=== PATIENT | female | born 1995 | race Asian ===

== ENCOUNTER 2017-05-06 01:54 | Emergency (ER) | payer OTHER ==
[~2017-05-06] VITALS: Ht 160 cm; Wt 54.2 kg
[2017-05-06 02:08] VITALS: TEMP 36.7; Ht 160 cm; Wt 54.2 kg
[2017-05-06] MEDS ORDERED: SODIUM CHLORIDE 0.9% 1000ML 1,000 ML IV STA (02:20)
[2017-05-06 02:58] LABS: BASO % 0.4 %; BASO ABS # 0.03 K/uL (0-0.2); COMPLETE YES; EOS % 2.2 %; IG% 0.1 %; LYMPH % 37.4 %; MEAN CELL VOLUME 90.3 fL (80-100); MEAN CORPUSCULAR HEMOGLOBIN 29.5 pg (25-34); MEAN CORPUSCULAR HGB CONC 32.6 g/dl (32-36); MEAN PLATELET VOLUME 10.6 fL (7.4-10.4); MONO % 7.9 %; PLATELET COUNT 227 K/uL (130-400); RED BLOOD COUNT 4.65 M/uL (4.2-5.4); WHITE BLOOD COUNT 6.95 K/uL (4.8-10.8)
[2017-05-06 02:59] LABS: MANUAL MICROSCOPIC REQUIRED? NO; REVIEW REQ? NO; URINE APPEARANCE CLEAR (CLEAR); URINE BILIRUBIN NEG (NEG); URINE COLOR YELLOW; URINE NITRITE NEG (NEG); URINE PH 5.5 (4.5-7.5); URINE SPECIFIC GRAVITY 1.015 (1.000-1.030); UROBILINOGEN NEG (NEG); ZZUR CULT IF INDIC CLEAN CATCH NO
[2017-05-06 03:17] LABS: ALT/SGPT 19 U/L (12-78); AST/SGOT 11 U/L (15-37); BLOOD UREA NITROGEN 14 mg/dl (7-18); BUN/CREATININE RATIO 22.2 (10-20); CARBON DIOXIDE 29 mmol/L (21-32); CHLORIDE 104 mmol/L (98-107); CREATININE 0.65 mg/dl (0.60-1.20); GLUCOSE 90 mg/dl (70-99); POTASSIUM 3.8 mmol/L (3.5-5.1); SODIUM 137 mmol/L (136-145)
[2017-05-06 03:18] LABS: PREG INTERNAL NEGATIVE QC NEG CLEAR BACKGROUND; PREG INTERNAL POSITIVE QC POS CONTROL LINE
[2017-05-06 03:20] LABS: ALKALINE PHOSPHATASE 89 U/L (45-117)
--- NOTE | 2017-05-06 05:42 | EMERGENCY ROOM VISIT NOTE ---
History First contact with patient: 02:11 Chief Complaint: PELVIC PAIN Stated Complaint: VAGINAL AREA PAIN History of Present Illness The patient is a 21 year old female who presents to the Emergency Room with complaints of leg pain after intercourse tonight with her partner. Patient states she's had intercourse before and has not had pain. Pain currently 4-10. Comes and goes in severity. It does not radiate. Described as aching. Patient denies chest pain, dyspnea, fever, chills, nausea, vomiting, diarrhea, abdominal pain, back pain, urinary symptoms, vaginal itching or discharge. She does not feel at risk for STIs. Review of Systems See HPI for pertinent positives & negatives. A total of 10 systems reviewed and were otherwise negative. Past Medical/Surgical History None Social History Smoking Status: Current Every Day Smoker Drug Use: none Marital Status: in relationship Occupation Status: [employer] student Current/Historical Medications No Active Prescriptions or Reported Meds Physical Exam Vital Signs Date Time Temp Pulse Resp B/P (MAP) Pulse Ox O2 Delivery O2 Flow Rate FiO2 05/06/17 03:56 66 16 96/60 98 Room Air 05/06/17 02:08 36.7 82 18 109/75 94 Room Air Physical Exam VITALS: Vitals are noted on the nurse's note and reviewed by myself. Vital signs stable. GENERAL: Pleasant female, in no acute distress, nondiaphoretic, well-developed well-nourished. SKIN: Capillary reflex less than 2 seconds. HEENT: Normocephalic. PERRLA. EOMI. Nares patent. Mucous membranes moist. Neck is supple without nuchal rigidity. HEART: Regular rate and rhythm without murmurs gallops or rubs. LUNGS: Clear to auscultation bilaterally without wheezes, rales or rhonchi. No retractions or accessory muscle use. ABDOMEN: Positive bowel sounds x 4. Normal tympanic percussion. Soft, nontender, without masses or organomegaly. Joseph sign negative. No guarding or rebound tenderness. No CVA tenderness exam: Normal external female genitalia, minimal white discharge in the vault , no CMT tenderness, minimal right adnexal tenderness, cultures taken and sent. Site Planner present MUSCULOSKELETAL: No gross musculoskeletal defects. NEURO: Patient was alert and oriented to person place and time. Normal sensation to light and sharp touch. No focal neurological deficits. Medical Decision & Procedures Laboratory Results 05/06/17 02:35 Red Blood Count 4.65, Mean Corpuscular Volume 90.3, Mean Corpuscular Hemoglobin 29.5, Mean Corpuscular Hemoglobin Concent 32.6, Mean Platelet Volume 10.6, Neutrophils (%) (Auto) 52.0, Lymphocytes (%) (Auto) 37.4, Monocytes (%) (Auto) 7.9, Eosinophils (%) (Auto) 2.2, Basophils (%) (Auto) 0.4, Neutrophils # (Auto) 3.61, Lymphocytes # (Auto) 2.60, Monocytes # (Auto) 0.55, Eosinophils # (Auto) 0.15, Basophils # (Auto) 0.03 05/06/17 02:35 Test 05/06/17 02:35 05/06/17 02:55 White Blood Count 6.95 K/uL (4.8-10.8) Red Blood Count 4.65 M/uL (4.2-5.4) Hemoglobin 13.7 g/dL (12.0-16.0) Hematocrit 42.0 % (37-47) Mean Corpuscular Volume 90.3 fL (80-100) Mean Corpuscular Hemoglobin 29.5 pg (25-34) Mean Corpuscular Hemoglobin Concent 32.6 g/dl (32-36) Platelet Count 227 K/uL (130-400) Mean Platelet Volume 10.6 fL (7.4-10.4) Neutrophils (%) (Auto) 52.0 % Lymphocytes (%) (Auto) 37.4 % Monocytes (%) (Auto) 7.9 % Eosinophils (%) (Auto) 2.2 % Basophils (%) (Auto) 0.4 % Neutrophils # (Auto) 3.61 K/uL (1.4-6.5) Lymphocytes # (Auto) 2.60 K/uL (1.2-3.4) Monocytes # (Auto) 0.55 K/uL (0.11-0.59) Eosinophils # (Auto) 0.15 K/uL (0-0.5) Basophils # (Auto) 0.03 K/uL (0-0.2) RDW Standard Deviation 41.7 fL (36.4-46.3) RDW Coefficient of Variation 12.7 % (11.5-14.5) Immature Granulocyte % (Auto) 0.1 % Immature Granulocyte # (Auto) 0.01 K/uL (0.00-0.02) Urine Color YELLOW Urine Appearance CLEAR (CLEAR) Urine pH 5.5 (4.5-7.5) Urine Specific Cammal 1.015 (1.000-1.030) Urine Protein NEG (NEG) Urine Glucose (UA) NEG (NEG) Urine Ketones NEG (NEG) Urine Occult Blood NEG (NEG) Urine Nitrite NEG (NEG) Urine Bilirubin NEG (NEG) Urine Urobilinogen NEG (NEG) Urine Leukocyte Esterase NEG (NEG) Anion Gap 4.0 mmol/L (3-11) Est Creatinine Clear Calc Drug Dose 115.1 ml/min Estimated GFR () 149.2 Estimated GFR (Non- 128.7 BUN/Creatinine Ratio 22.2 (10-20) Calcium Level 9.0 mg/dl (8.5-10.1) Total Bilirubin 0.3 mg/dl (0.2-1) Direct Bilirubin < 0.1 mg/dl (0-0.2) Aspartate Amino Transf (AST/SGOT) 11 U/L (15-37) Alanine Aminotransferase (ALT/SGPT) 19 U/L (12-78) Alkaline Phosphatase 89 U/L (45-117) Total Protein 7.8 gm/dl (6.4-8.2) Albumin 4.1 gm/dl (3.4-5.0) Human Chorionic Gonadotropin, Qual NEG (NEG) Date/Time Source Procedure Growth Status 05/06/17 02:55 Cervix Swab Trichomonas Preparation - Final Complete Medications Administered Medications (Trade) Dose Ordered Sig/Junior Route Start Time Stop Time Status Last Admin Dose Admin Sodium Chloride 1,000 ml @ 999 mls/hr Q1H1M STAT IV 05/06/17 02:20 05/06/17 03:20 DC 05/06/17 02:41 999 MLS/HR ED Course Prior records/ancillary studies reviewed. Triage Nursing notes reviewed. Additional history obtained from friend. The patient's history was concerning for pelvic pain. Differential diagnosis: Differential diagnosis includes salpingitis, , ectopic , incomplete , septic , ruptured ovarian cyst, ovarian torsion, Mittelschmerz, endometritis, dysmenorrhea, appendicitis, PID, and others. Physical examination findings: As above. ER treatment provided: IV fluids On reassessment the patient felt better. Diagnostics interpreted by me: The labs revealed give hCG. Negative urine. Stable H&H Imaging studies: US PELVIS: Uterus and endometrial complex are unremarkable. At least a small amount of hypoechoic free fluid in the pelvic cul-de-sac is nonspecific but can be due to ruptured ovarian cyst. Blood flow demonstrated to both ovaries. Free fluid adjacent to the right adnexa. No adnexal masses. Bladder is normal. Radiologist: José Godinez M.D. Exam and history seem consistent with pelvic pain most likely from ruptured ovarian cyst. Patient was neurovascularly and neurologically intact. She did not have acute abdomen on exam. No signs of infection. Negative urine. She is in a monogamous relationship. She is advised to follow-up with [facility] in a few days or here in the ER sooner for abdominal pain, fevers, vomiting, worsening signs or symptoms or as needed. Patient no signs of torsion. No signs of PID. By the evaluation outlined above emergent etiologies such as salpingitis, , ectopic , incomplete , septic , ruptured ovarian cyst, ovarian torsion, Mittelschmerz, endometritis, dysmenorrhea, appendicitis, PID, as well as others were deemed relatively unlikely. The pt informed about the findings as listed above. All questions were answered and pleased with the treatment. Return instructions were outlined and the patient was discharged in stable condition. Referral: The patient was referred to [facility] for follow-up in 2 to 3 days for a recheck of the current condition. Case reviewed with my attending Medical Decision As above Medication Reconcilliation Current Medication List: was personally reviewed by me Blood Pressure Screening Patient's blood pressure: Normal blood pressure Impression Primary Impression: Ruptured ovarian cyst Departure Information Dispostion Home / Self-Care Condition GOOD Prescriptions No Active Prescriptions or Reported Meds Referrals [facility] (PCP) Patient Instructions My [facility] Additional Instructions Ibuprofen(Motrin, Advil) may be used for fever or pain. Use 400mg every six hours as needed. Take with food. Avoid using more than 1600mg in a 24 hour period. Do not use 2400mg per day for more than three consecutive days without physician direction. Prolonged inappropriate use can lead to stomach upset or ulcers. (AND/OR) Acetaminophen(Tylenol) may be used for fever or pain. Use 500mg every six hours as needed. Avoid using more than 2000mg in a 24 hour period. Rest and drink plenty of fluids as tolerated. Continue current medications. Avoid strenuous activities and anything that worsens your pain. Resume normal activities once your symptoms resolve. Return to the ER immediately for worsening or persistent pelvic pain, abdominal pain, vomiting, fevers, chest pains, difficulty breathing, worsening of your condition, or as needed. Follow up with [facility] in 2-3 days for a recheck of your current condition.
[2017-05-06 05:53] VITALS: BP 102/75; PULSE 64; O2SAT 98
--- NOTE | 2017-05-06 07:29 | DIAGNOSTIC IMAGING REPORT ---
PELVIC ULTRASOUND CLINICAL HISTORY: Pelvic pain after intercourse. COMPARISON STUDY: None. TECHNIQUE: Transabdominal sonography of the pelvis was performed. The patient deferred transvaginal imaging. FINDINGS: The uterus measures 8.3 x 4.8 cm. The endometrium measures 5 mm in thickness. The right ovary measures 3 x 1.9 x 2.8 cm and the left measures 4.4 x 1.8 x 3.1 cm. Color flow is identified within each ovary. A small amount of fluid was noted within the pelvis. IMPRESSION: 1. Unremarkable sonographic appearance of the uterus and ovaries. 2. Small amount of fluid within the pelvis. This may be physiologic or related to a ruptured ovarian cyst. Electronically signed by: Ion Church M.D. 05/06/2017 7:28 AM Dictated Date/Time: 05/06/2017 7:26 AM
[2017-05-08 00:51] LABS: CHLAMYDIA TRACH RNA*** NOT DETECTED (NOT DETECTED); GC (NEIS GONORRHOEAE)RNA** NOT DETECTED (NOT DETECTED)
== END 2017-05-06 06:05 | disposition home or self-care (01) ==
LOC: C.EDB 01:57
DX: N83.209 Unspecified ovarian cyst, unspecified side (principal); F17.200 Nicotine dependence, unspecified, uncomplicated

== ENCOUNTER 2017-12-31 19:28 | Emergency (ER) | payer OTHER ==
[~2017-12-31] VITALS: Ht 160 cm; Wt 55.1 kg
[2017-12-31 19:32] VITALS: BP 117/85; PULSE 100; TEMP 36.8; O2SAT 98; Ht 160 cm; Wt 55.1 kg
--- NOTE | 2017-12-31 19:50 | EMERGENCY ROOM VISIT NOTE ---
History First contact with patient: 19:34 Chief Complaint: DENTAL PAIN Stated Complaint: BROKE FRONT TOOTH OFF Nursing Triage Summary: pt was eating and front false tooth fell out. History of Present Illness The patient is a 22 year old female who presents to the Emergency Room with complaints of a broken tooth which occurred just prior to arrival. The patient states that she was eating something and when she bit into it, her left front tooth broke off. She states that she has a crown on that tooth which was placed approximately 3 years ago. She is returning home in 5 days and will be able to see her dentist at that time. She denies any pain. Review of Systems A 6 point review of systems was reviewed with the patient with pertinent positives and negatives as per history of present illness. All else were negative. Past Medical/Surgical History Medical Problems: (1) No significant active problems Social History Smoking Status: Never Smoker Drug Use: none Marital Status: in relationship Occupation Status: [employer] student Current/Historical Medications No Active Prescriptions or Reported Meds Physical Exam Vital Signs Date Time Temp Pulse Resp B/P (MAP) Pulse Ox O2 Delivery O2 Flow Rate FiO2 18 19:32 36.8 100 18 117/85 98 Room Air Physical Exam VITALS: Vitals are noted on the nurse's note and reviewed by myself. Vital signs stable. GENERAL: This is a 22-year-old female, in no acute distress, nondiaphoretic, well-developed well-nourished. MOUTH: Tooth #9 has broken off and is missing. There is no bleeding from the gums. The remainder of the teeth are intact. NEURO: Patient was alert and oriented to person place and time. Medical Decision & Procedures Medical Decision The patient was evaluated as above. Her tooth broke off while eating today. The tooth is missing on exam. She does have the tooth with her. I informed the patient that there is no emergent need to have the tooth rate cemented. She was advised to contact a dentist first thing in the morning to schedule follow-up. She verbalized understanding of my assessment and treatment plan and was discharged home in good condition. Medication Reconcilliation Current Medication List: was personally reviewed by me Blood Pressure Screening Patient's blood pressure: Normal blood pressure Impression Primary Impression: Broken tooth Departure Information Dispostion Home / Self-Care Condition GOOD Prescriptions No Active Prescriptions or Reported Meds Patient Instructions My [facility] [address] Additional Instructions Contact dentist in the morning to schedule an appointment as soon as possible. You may contact Dr. Waters, who is accepting new patients. [phone] [address], [address] Try to avoid very hot or very cold foods, as they may cause sensitivity. Problem Qualifiers Primary Impression: Broken tooth Encounter type: initial encounter Fracture type: closed Qualified Codes: S02.5XXA - Fracture of tooth (traumatic), initial encounter for closed fracture
== END 2017-12-31 19:56 | disposition home or self-care (01) ==
LOC: C.EDB 19:30 → C.EDD 19:56
DX: S02.5XXA Fracture of tooth (traumatic), initial encounter for closed fracture (principal); X58.XXXA Exposure to other specified factors, initial encounter